=== PATIENT | male | born 1960 | race Caucasian/White ===

== ENCOUNTER → 2017-11-09 08:52 | Outpatient (CLI) | payer MEDICAID, SELFPAY ==
[2017-11-09 10:16] LABS: Basophils # 0.1 K/mm3 (0-0.2); Basophils % 0.7 % (0.1-2.0); Eosinophils # 0.2 K/mm3 (0.0-0.4); Hematocrit 43.2 % (42.0-52.0); Hemoglobin 13.4 g/dL (14.1-18.0); Lymphocytes # 2.4 K/mm3 (0.7-4.5); Lymphocytes % 16.2 K/mm3 (10-50); Mean Corpuscular HGB Conc 31.1 g/dL (31.8-35.4); Mean Corpuscular Hemoglobin 27.6 pg (27.0-31.2); Mean Corpuscular Volume 88.9 fl (80-94); Mean Platelet Volume 7.4 fl (7.4-10.4); Monocytes % 6.4 % (1.7-9.3); Neutrophils # 11.4 K/mm3 (1.8-7.8); Neutrophils % 75.7 % (37.0-80.0); Platelet Count 394 K/mm3 (142-424); Red Blood Count 4.86 M/mm3 (4.60-6.20); Red Cell Distribution Width 12.9 % (11.5-17.5)
[2017-11-09 10:27] LABS: MANUAL DIFFERENTIAL MANUAL DIFFERENTIAL (MANUAL DIFF)
[2017-11-09 10:34] LABS: Hemoglobin A1C 7.5 % (0.0-7.0)
[2017-11-09 10:43] LABS: Alanine Aminotransferase 52 U/L (12-78); Albumin Level 3.7 gm/dL (3.4-5.0); Albumin/Globulin Ratio 1.1 (1.1-1.8); Alkaline Phosphatase 83 U/L (46-116); Anion Gap 12.6 mEq/L (5-15); Aspartate Amino Transferase 14 U/L (15-37); Bilirubin,Total 0.2 mg/dL (0.2-1.0); Blood Urea Nitrogen 16 mg/dL (7-18); Carbon Dioxide 31 mmol/L (21.0-32.0); Chloride 103 mmol/L (98-107); Chol/HDL Ratio 4.5 (1-3.5); Cholesterol 158 mg/dL (140-200); Creatinine,Serum 0.83 mg/dL (0.70-1.30); Estimated Glomerular Filt Rate 95 ml/min (>60); GFR (African American) 115 ML/MIN (>60); Globulin 3.4 gm/dl (1.3-3.2); Glucose 115 mg/dL (74-106); HDL Cholesterol 35 mg/dL (27-67); LDL Cholesterol 91 mg/dL (0-130); Potassium 4.6 mmoL/L (3.5-5.1); Sodium 142 mmol/L (136-145); Total Protein,Serum 7.1 gm/dL (6.4-8.2); Triglycerides 158 mg/dL (30-200); VLDL Cholesterol 32 mg/dL (0-40)
[2017-11-09 11:20] LABS: Lymphocytes % 22 % (10-50); Monocytes % 3 % (2-9); Neutrophils % 75 % (42-76); Total Cells Counted 100
[2017-11-09 11:21] LABS: Platelet Estimate Normal; RBC Morphology Normal
== END ==
PROVIDERS: PCP Family Medicine; Visit Provider Nurse Practitioner
DX: E11.22 Type 2 diabetes mellitus with diabetic chronic kidney disease (principal); N18.9 Chronic kidney disease, unspecified; E78.5 Hyperlipidemia, unspecified
CPT/HCPCS: 36415; 80053; 80061; 83036; 85007; 85025

== ENCOUNTER 2018-01-05 16:00 | Outpatient (RCR) | payer MEDICAID, SELFPAY | END 2018-01-05 16:01 | disposition home or self-care (01) | LOC: PT 16:00 | PROVIDERS: Family Provider Family Medicine; PCP Family Medicine; Visit Provider Orthopaedic Surgery | DX: M75.41 Impingement syndrome of right shoulder (principal) | CPT/HCPCS: 97010; 97014; 97016; 97033; 97035; 97110; 97163; G0283 ==

== ENCOUNTER 2018-01-11 14:00 | Outpatient (RCR) | payer MEDICAID, SELFPAY | END 2018-01-11 14:01 | disposition home or self-care (01) | LOC: PT 14:00 | PROVIDERS: Visit Provider Orthopaedic Surgery | DX: M51.36 Other intervertebral disc degeneration, lumbar region (principal) | CPT/HCPCS: 97010; 97014; 97110; 97140; 97163; 97164; G0283 ==

== ENCOUNTER 2018-04-18 13:30 | Outpatient (RCR) | payer MEDICAID, SELFPAY | END 2018-04-18 13:35 | disposition home or self-care (01) | LOC: PT 13:30 | PROVIDERS: Visit Provider Orthopaedic Surgery | DX: M25.511 Pain in right shoulder (principal) | CPT/HCPCS: 97010; 97014; 97016; 97033; 97035; 97110; 97163; 97164; G0283 ==

== ENCOUNTER 2018-04-20 13:30 | Outpatient (RCR) | payer MEDICAID, SELFPAY | END 2018-04-20 13:35 | disposition home or self-care (01) | LOC: PT 13:30 | DX: M54.5 Low back pain (principal) | CPT/HCPCS: 97010; 97012; 97014; 97110; 97163; 97164; G0283 ==

== ENCOUNTER 2018-06-05 13:45 | Outpatient (RCR) | payer MEDICAID, SELFPAY | END 2018-06-05 13:50 | disposition home or self-care (01) | LOC: PT 13:45 | DX: M54.5 Low back pain (principal); M48.061 Spinal stenosis, lumbar region without neurogenic claudication | CPT/HCPCS: 97163 ==

== ENCOUNTER 2018-10-19 09:30 | Outpatient (RCR) | payer MEDICAID, SELFPAY | END 2018-10-19 09:35 | disposition home or self-care (01) | LOC: PT 09:30 | PROVIDERS: Visit Provider Orthopaedic Surgery | DX: M54.5 Low back pain (principal) | CPT/HCPCS: 97010; 97012; 97014; 97110; 97163; G0283 ==